=== PATIENT | female | born 1985 | race Two or more races ===

== ENCOUNTER 2020-05-25 15:58 | Emergency (ER) | payer MEDICAID, OTHER ==
[~2020-05-25] VITALS: Ht 162.6 cm; Wt 61.2 kg
[2020-05-25 16:05] VITALS: BP 133/81
== END 2020-05-25 17:07 | disposition home or self-care (01) ==
LOC: EDBD 15:58 → ER 15:58
DX: S92.324A Nondisplaced fracture of second metatarsal bone, right foot, initial encounter for closed fracture (principal); W20.8XXA Other cause of strike by thrown, projected or falling object, initial encounter; Y93.89 Activity, other specified; Y92.89 Other specified places as the place of occurrence of the external cause; Y99.8 Other external cause status
CPT/HCPCS: 29515; 73630